=== PATIENT | female | born 1995 | race Caucasian/White ===

== ENCOUNTER 2018-03-29 11:51 | Emergency (ER) | payer SELFPAY ==
[2018-03-29 12:14] VITALS: TEMP 99.3; O2SAT 100
--- NOTE | 2018-03-29 12:33 | ED.PDOC ---
History of Present Illness - General Chief Complaint: Back Pain or Injury Stated Complaint: back pain Time Seen by Provider: 03/29/18 12:09 Source: patient Exam Limitations: no limitations - History of Present Illness Initial Comments: patient comes in today with 3 week history of worsening low back pain. Patient comes in this morning through the emergency room secondary to severe worsening since she slipped and fell in the mud yesterday landing on her bottom. Patient states the pain has been in the left sacroiliac area of the entire time but times does radiate down the back of her leg with a tingling type feeling radiates to her abdomen causing fluttering and cramping-like pains in the pelvic area. Patient states that the pelvic pain has resolved but she's had it intermittently throughout the 3 week episode. The patient states that she had noticed that she was having abnormal bleeding with her menses this month but since she uses Nexplanon for control she attributed the bleeding to that. 2 weeks ago she had very heavy bleeding where she had to change Super max pads out every hour and then subsequently had additional spotting the following week. Patient states she also noticed that with sexual intercourse attempt the pain in her back got significantly worse and she had to stop the intercourse. Patient denies any vaginal discharge, dysuria, fever, or chills. She has never had back injury or problems before. She does do lifting at the [facility] but did not have one specific incident of injury that she can remember. Patient denies any weakness of the leg but states the pain is so severe it makes it feel like "it wants to give out". Patient had some nausea when the pain is at its worst. Pain is cramping and pressure like in the left lumbar sacral area primarily. Patient states the past she's had occasional bouts with back pain but nothing this severe and usually that feels like it happening on the opposite side. Patient has no loss of bowel or bladder continence. Patient is otherwise healthy with no past medical history. Timing/Duration: getting worse Quality/Severity: severe, radiation Back Pain Location: lumbar spine Back Pain Radiation: buttocks, upper legs Method of Injury/Prior Injury: unknown Improving Factors: rest Worsening Factors: movement Associated Symptoms: denies symptoms Allergies/Adverse Reactions: Allergies Amoxicillin Allergy (Verified 03/20/15 00:21) Ceftriaxone [From Rocephin] Allergy (Verified 03/29/18 12:14) Home Medications: Ambulatory Orders Nitrofurantoin Monohydrate Mac [Macrobid] 100 mg PO BID #14 cap 03/20/15 Cyclobenzaprine HCl [Flexeril] 5 mg PO TID #15 tab 03/29/18 Tramadol HCl [Ultram] 50 mg PO Q6HR PRN 3 Days #15 tab 03/29/18 Review of Systems - Review of Systems Constitutional: States: no symptoms reported. Denies: chills, fever EENTM: States: no symptoms reported. Denies: blurred vision, ear discharge Respiratory: States: no symptoms reported. Denies: cough, short of breath Cardiology: States: no symptoms reported. Denies: chest pain Gastrointestinal/Abdominal: States: nausea. Denies: abdominal pain, constipation, diarrhea, vomiting Genitourinary: States: no symptoms reported. Denies: discharge, dysuria, frequency, hematuria Musculoskeletal: States: see HPI, back pain Skin: States: no symptoms reported Neurological: States: no symptoms reported Past Medical History (General) - Patient Medical History Hx Seizures: No Hx Stroke: No Hx Dementia: No Hx Asthma: No Hx of COPD: No Hx Cardiac Disorders: No Hx Congestive Heart Failure: No Hx Pacemaker: No Hx Hypertension: No Hx Thyroid Disease: No Hx Diabetes: No Hx Gastroesophageal Reflux: No Hx Renal Disease: No Hx Cancer: No Hx of HIV: No Hx Hepatitis C: No Hx MRSA: No - Vaccination History Hx Tetanus, Diphtheria Vaccination: No Hx Influenza Vaccination: No Hx Pneumococcal Vaccination: No Immunizations Up to Date: No - Social History Hx Tobacco Use: No Hx Chewing Tobacco Use: No Hx Alcohol Use: No Hx Substance Use: No Hx Substance Use Treatment: No Hx Depression: No Feels Threatened In Home Enviroment: No Feels Threatened In a Relationship: No Hx Physical Abuse: No Hx Emotional Abuse: No Hx Suspected Abuse: No - Activities of Daily Living Hospice Agency (if applicable):: None - Female History Patient is a Female of Child Bearing Age (10 -59 yrs old): No Hx Last Menstrual Period: 11/05/14 Patient : No Family Medical History - Family History Mother Family History: Unknown Physical Exam - Physical Exam General Appearance: Alert, No apparent distress Eyes, Ears, Nose, Throat Exam: PERRL/EOMI, normal ENT inspection Neck Exam: non-tender, full range of motion, normal alignment Cardiovascular/Respiratory: regular rate, rhythm, no M/R/G, normal peripheral pulses, normal breath sounds, no respiratory distress Peripheral Pulses: radial,right: 2+, radial,left: 2+, dorsalis pedis,right: 2+, dorsalis pedis,left: 2+ Gastrointestinal/Abdominal: normal bowel sounds, non tender, soft Back Exam: normal inspection, no vertebral tenderness, other - TTP with reproduction of pain to the L SI joint no midline pain no deformity no bruising Neurologic: no motor/sensory deficits, alert, oriented x 3 Skin Exam: normal color Progress - Progress Progress: patient had trigger point injection over the sacroiliac area with only minimal improvement of the pain. Despite Flexeril and Toradol patient continues to have significant discomfort. Xrays are normal. Hydrocodone 1 given and patient will be sent home with Ultram and Flexeril with follow-up with her PCP in 2-3 days. Work excuse for the next 2 days off until patient can follow up with her PCP. 03/29/18 14:39 03/29/18 15:18 - Results/Orders Results/Orders: Laboratory Results WBC 9.1 K/mm3 (4.8-10.8) 03/29/18 12:58 RBC 4.99 M/mm3 (4.20-5.40) 03/29/18 12:58 Hgb 14.8 gm/dL (12.0-16.0) 03/29/18 12:58 Hct 45.2 % (36.0-47.0) 03/29/18 12:58 MCV 90.5 fl (81.0-99.0) 03/29/18 12:58 MCH 29.6 pg (27.0-31.0) 03/29/18 12:58 MCHC 32.7 g/dL (33.0-37.0) L 03/29/18 12:58 RDW 14.5 % (11.5-14.5) 03/29/18 12:58 Plt Count 341 K/mm3 (130-400) 03/29/18 12:58 MPV 7.4 fl (7.40-10.4) 03/29/18 12:58 Absolute Neuts (auto) 5.60 K/uL (1.8-6.8) 03/29/18 12:58 Absolute Lymphs (auto) 2.30 K/uL (1.0-3.4) 03/29/18 12:58 Absolute Monos (auto) 0.90 K/uL (0.2-0.8) H 03/29/18 12:58 Absolute Eos (auto) 0.30 K/uL (0.0-0.4) 03/29/18 12:58 Absolute Basos (auto) 0.10 K/uL (0.0-0.1) 03/29/18 12:58 Neutrophils % 61.0 % (42.0-78.0) 03/29/18 12:58 Lymphocytes % 24.9 % (20.0-50.0) 03/29/18 12:58 Monocytes % 10.0 % (2.0-9.0) H 03/29/18 12:58 Eosinophils % 3.3 % (1.0-5.0) 03/29/18 12:58 Basophils % 0.8 % (0.0-2.0) 03/29/18 12:58 Serum HCG, Qual Negative 03/29/18 Unknown Departure - Departure Clinical Impression: Low back pain Qualifiers: Chronicity: acute Back pain laterality: left Sciatica presence: with sciatica Sciatica laterality: sciatica of left side Qualified Code(s): M54.42 - Lumbago with sciatica, left side Disposition: Discharge to Home or Self Care Condition: Fair Departure Forms: ED Discharge - Pt. Copy, Patient Portal Self Enrollment Instructions: DI for Low Back Pain Referrals: TALON PENA [Primary Care Provider] - 1-2 Weeks Prescriptions: Tramadol HCl [Ultram] 50 mg PO Q6HR PRN 3 Days #15 tab PRN Reason: Pain Cyclobenzaprine HCl [Flexeril] 5 mg PO TID #15 tab Home Medications: Ambulatory Orders Nitrofurantoin Monohydrate Mac [Macrobid] 100 mg PO BID #14 cap 03/20/15 Cyclobenzaprine HCl [Flexeril] 5 mg PO TID #15 tab 03/29/18 Tramadol HCl [Ultram] 50 mg PO Q6HR PRN 3 Days #15 tab 03/29/18 Additional Instructions: follow-up with her PCP in 2-3 days. Work excuse for the next 2 days off until patient can follow up with her PCP.
[2018-03-29] MEDS: DEXAMETHASONE INJ 4 MG/ML VIAL IM ONE (13:37)
[2018-03-29] MEDS: LIDOCAINE 1% 10 ML VIAL INJ ONE (13:37)
[2018-03-29] MEDS: CYCLOBENZAPRINE HCL 5 MG TAB PO ONE (13:46)
[2018-03-29] MEDS: KETOROLAC TROMETHAMINE INJ 60 MG/2 ML VIAL IM ONE (13:47)
[2018-03-29] MEDS: HYDROcodone 5MG/APAP 325MG 1 EA TAB PO ONE (15:03)
--- NOTE | 2018-03-29 15:17 | RAD ---
EXAM DESCRIPTION: Lumbar Spine 3 Views CLINICAL HISTORY: 22 years Female, pain with fall COMPARISON: None. FINDINGS: Three views of the lumbar spine show no vertebral body fracture or subluxation. No disc space narrowing. The spinous and transverse processes are intact. No sacral fracture is identified. IMPRESSION: Negative exam. Electronically signed by: Sheldon Ramirez MD 03/29/2018 3:15 PM CDT
[2018-03-29 15:32] VITALS: BP 133/62
== END 2018-03-29 15:33 | disposition home or self-care (01) ==
LOC: ER 11:51
DX: M54.42 Lumbago with sciatica, left side (principal); R11.0 Nausea; Z88.1 Allergy status to other antibiotic agents
CPT/HCPCS: 72100; 84703; 85025; J1100; J1885